=== PATIENT | female | born 2000 | race Caucasian/White ===

== ENCOUNTER 2018-09-05 06:00 | Inpatient (IN) ==
[2018-09-05] MEDS ORDERED: Famotidine 20 MG/2 ML VIAL IVP PRN (06:24)
[2018-09-05] MEDS ORDERED: Naloxone 0.4 MG/ML INJ IVP PRN (06:24)
--- NOTE | 2018-09-05 07:15 | OB/GYN History & Physical ---
Date of Encounter: 09/05/18 Time of Encounter: 07:12 Assessment and Plan (1) First in adolescent 16 years of age or older in third trimester Current visit: Yes Status: Acute (2) 39 weeks gestation of Current visit: Yes Status: Acute (3) Gestational diabetes Current visit: Yes Status: Acute Qualifiers: Gestational diabetes mellitus control: diet-controlled Trimester: third trimester Qualified Code(s): O24.410 - Gestational diabetes mellitus in , diet controlled (4) Elective induction of labor planned Current visit: Yes Status: Acute Patient will be induced with a Ray catheter and Cytotec plan is to anticipate vaginal delivery History of Present Illness HPI: Ms. Rothman is a 18 year old female 1 para 0 at 39-3/7 weeks who presented to labor and delivery for induction of labor secondary to term and being a gestational diabetic. Patient has been relatively noncompliant not bringing her sugar logs with her at her appointments. She stated that they were all been normal but when questioned what they are some have been high. She did bring in one time and they were normal. Patient did see maternal medicine recently due to missing 2 previous appointments the estimated weight was 3680 g which was greater than the 90th percentile with an WILLIAM of 20. They recommended delivering her in the 39 week range. Patient does not have the most favorable cervix but with her history had recommended proceeding on. Patient's NSTs have all been reactive. Patient denies having any regular contractions denies leaking of fluid still having good movement. Patient is GBS negative, O+, rubella positive, Varicella positive Past Med Surg Social Fam HX - Past Medical History Source: patient, old records reviewed Medical history: other Additional medical history: Gestational diabetes diet controlled Psychiatric history: anxiety - Past Surgical History Surgical History: no surgical history - Social History Smoking Status: Current every day smoker Packs per day: 0.5 Smokeless Tobacco Status: No Alcohol use: none Drug use: none Occupational status: unemployed Current living situation: Home - Independent Activity Level: Independent ambulation Recent Out of Country Travel Within the Last 8 Weeks: No Exposure or Possible Exposure to Illness During Travel: No - Family History Mother Living Status: Still Living Hx Family Cardiac Disorders: No Hx Family Respiratory Disorders: No Hx Family Cancer: No Hx Family GI Disorders: No Hx Family Genitourinary Disorders: No Hx Family Endocrine Disorder: Yes (DM) Hx Family Musculoskeletal Disorders: No Hx Family Neuromuscular Disorders: No Hx Family Neurologic Disorders: No Hx Family HEENT Disorders: No Hx Family Autoimmune Disorders: No Hx Family Reproductive Disorders: No Hx Family Psychosocial Disorders: No Hx Family Medical Disorders: No - Additional Family History Additional family history: Family history noncontributory Obstetrical History - Pregnancies : 1 Para: 0 Livin Medications and Allergies Vit #108/Iron/FA [ One Tablet] 1 mg PO DAILY 09/05/18 [History] Allergy/AdvReac Type Severity Reaction Status Date / Time No Known Allergies Allergy Verified 09/05/18 06:42 Review of System OB All systems PM: reviewed and no additional remarkable complaints except as stated Exam - Constitutional Constitutional: well developed, well nourished, no acute distress, morbidly obese - HEENT HEENT: EOMI, PERRL, Mucus Membranes Moist - Neck Neck exam: full ROM - Lungs Respiratory exam: CTAB - Cardiovascular Cardiovascular exam: RRR - Abdomen Abdomen: Present: bowel sounds normal, gravid ( heart tones 140s reactive occasional contractions seen) - Vagina Vagina: Present: normal moisture - Cervix Dilation: 1 Effacement: 50 Station: -3 (Ray catheter placed then 25 g Cytotec placed vaginally.) Results All other labs normal. - VTE Reasons for not Prescribing Prophylaxis: Treatment not Indicated - Low risk for VTE
[2018-09-05] MEDS ORDERED: Ringers Solution, Lactated 1,000 ML ONE (07:18)
[2018-09-05] MEDS ORDERED: Ringers Solution, Lactated 1,000 ML IVC SCH (07:30)
[2018-09-05] MEDS ORDERED: miSOPROStol 25 MCG TABLET VG PRN (07:39)
[2018-09-05 08:20] LABS: Basophils # 0.1 K/mcL (0.0-0.2); Basophils % 0.4 %; Eosinophils # 0.2 K/mcL (0.0-0.6); Eosinophils % 1.3 %; Hematocrit 39.3 % (35.3-44.9); Hemoglobin 13.1 g/dL (11.5-15.4); Lymphocytes # 2.5 K/mcL (0.6-4.6); Lymphocytes % 17.2 %; Mean Corpuscular HGB Conc 33.3 g/dL (31.6-35.5); Mean Corpuscular Hemoglobin 33.1 pg (28.0-33.3); Mean Corpuscular Volume 99.2 fL (83.0-100.0); Mean Platelet Volume 9.9 fL (9.4-12.4); Monocytes % 7.1 %; Neutrophils # 10.7 K/mcL (1.6-8.9); Platelet Count 269 K/mcL (140-400); Red Blood Count 3.96 M/mcL (3.82-4.97); Red Cell Distribution Width 12.5 % (11.5-14.5)
[2018-09-05] MEDS: *HR* Nalbuphine 10 MG/ML AMPUL IV PRN ×2 (10:07→12:41)
[2018-09-05] MEDS ORDERED: Ondansetron 4 MG/2 ML VIAL IVP PRN (11:19)
[2018-09-05] MEDS ORDERED: *HR* FentaNYL (PF) 100 MCG/2 ML VIAL EP ONE (15:29)
[2018-09-05] MEDS ORDERED: Bupivacaine-MPF 0.25% 10 ML VIAL EP ONE (15:29)
[2018-09-05] MEDS ORDERED: Epidural Premix (fent/bupiv) 110 ML EP SCH (15:30)
[2018-09-05] MEDS ORDERED: Lidocaine -MPF 2% 5 ML VIAL ONE (16:17)
[2018-09-05] MEDS ORDERED: Bupivacaine-MPF 0.25% 10 ML VIAL ONE (16:17)
[2018-09-05] MEDS ORDERED: *HR* FentaNYL (PF) 100 MCG/2 ML VIAL ONE (16:17)
[2018-09-05] MEDS ORDERED: Lidocaine/EPI 1:200k 1% PF 10 ML VIAL ONE (16:19)
--- NOTE | 2018-09-05 17:47 | Anesthesia Evaluation PreOp ---
Date of Encounter: 09/05/18 Time of Encounter: 15:36 - Past History Planned Operation: labor epidural Cardiac History: Denies any Significant Hx Pulmonary History: Smoker (smokes about 5 cigarettes a day, denies asthma or lung disease.) POWER SHOVEL OPERATOR HELPER History: Denies Any Significant HX Other Medical History: Other (gestational diabetes, diet controlled. BMI 44.) Anesthesia History: No Prior Anesthetic Complications (never had GA. No FHAP.) : Yes Alcohol Use: none Drug use: none Medications and Allergies Vit #108/Iron/FA [ One Tablet] 1 mg PO DAILY 09/05/18 [History] Allergy/AdvReac Type Severity Reaction Status Date / Time No Known Allergies Allergy Verified 09/05/18 06:42 - Meds/Allergy Pre-op Review Medications Reviewed: Yes Allergies Reviewed: Yes Beta Blockers on Current Med List: No Anesthesia Results - Labs 09/05/18 08:04 09/05/18 08:04 Anesthesia Exam 122/62, 109, 16. FHTs 130s. Height: 5'7" Weight: 128kg NPO (# of Hours): >8 Pain Scale: 7 Pain Scale Used: Numeric (1 - 10) - HEENT Pupil (Motor): Pupils equal, EOMI Mallampati: II Teeth: Normal Oral Opening: Greater than 3 - POWER SHOVEL OPERATOR HELPER LOC: Oriented POWER SHOVEL OPERATOR HELPER Motor: Normal RUE, Normal LUE, Normal RLE, Normal LLE, Normal Face POWER SHOVEL OPERATOR HELPER Sensory: Normal: RUE, LUE, RLE, LLE, Face - Cardiac Rhythm: Regular - Pulmonary Breath Sounds: bilateral Clear Respiratory Effort: Symmetrical Anesthesia Assess/Plan ASA Score: 3 Level of consciousness: Cooperative, Oriented, Tranquil Anesthetic Plan: Epidural Monitoring Plan: Standard Monitors
--- NOTE | 2018-09-05 17:53 | Anesthesia Procedures ---
Addendum entered and electronically signed by America Medina CRNA 09/06/18 06:53: Infant Delivery Date: 09/06/18 Infant Delivery Time: 04:23 Original Note: Date of Encounter: 09/05/18 Time of Encounter: 16:24 Procedures: Anesthesia - Epidural/Spinal Patient ID/Chart reviewed: Yes Patient examined: Yes OB Eval: : 1 OB Eval: Hx Para: 0 OB Eval: Dilated at (cm): 3 OB Eval: Contractions: Non-stressed pattern Consent Obtained: Yes Supplemental Oxygen: None/Room Air Site Prep: Aseptic Technique, Sterile prep and drape, Povidone-Iodine 1% Patient position: upright Local Anesthetic: Lidocaine 1% Amount of Local Anesthetic used: 5 Touhy Needle Gauge: 18 Touhy Needle Depth (cm): 8 Catheter Depth at Skin (cm): 18 Test Dose (1.5% Lido + Epi): Volume given (mls): 3 Test Dose Result: Negative Loading Dose: 0.25% Marcaine (mls): 8 Loading Dose: Fentanyl (mcg): 100 Loading Dose Administered: Thru Catheter Infusion Med: 0.125% Bupivacaine w/ 2 mcg/ml Fentanyl Infusion Rate (mls/hr): [address]: Tegaderm, Tape Interspace Used: L3-L4 Loss of Resistance (CRESCENCIO): Yes Blood: No CSF: No Paresthesia: No Vitals + FHT's: Vital Signs Time 1624 1642 1645 1650 1655 BP 124/67 115/70 115/49 114/57 113/58 Pulse 90 83 62 66 64 FHTs 130 130 130 130 130
--- NOTE | 2018-09-05 18:05 | OB Labor Progress Note ---
Date of Encounter: 09/05/18 Time of Encounter: 18:02 Labor Progress Note - Subjective Subjective: Patient comfortable after epidural and Ray catheter was out - Cervix Cervix: 3/80/-1 AROM clear fluid - Heart Tones Heart Tones: scalp monitor placed feel heart tones 140s reactive - Braymer Braymer: IUPC placed contractions irregular every 3-4 minutes - Plan Plan: We will augment with Pitocin plan is to anticipate vaginal delivery
[2018-09-05] MEDS ORDERED: Oxytocin 20 units/ LR 1000 mL 20 UNIT/1,000 ML BAG IVC SCH (18:30)
[2018-09-06] MEDS ORDERED: Metoclopramide 10 MG/2 ML VIAL IVP PRN ×2 (03:15→09:25)
[2018-09-06] MEDS ORDERED: Lidocaine/EPI 1:200k 2% PF 20 ML VIAL ONE (03:26)
[2018-09-06] MEDS ORDERED: *HR* Oxytocin 10 UNIT/ML VIAL IM ONE (03:26)
[2018-09-06] MEDS ORDERED: Water for inj. (sterile) 20 ML IV ONE (03:31)
--- NOTE | 2018-09-06 03:34 | OB/GYN Procedure Note ---
Section - Date of procedure: 09/06/18 Preop diagnosis: other (Intrauterine at 39-3/7 weeks, arrest of descent, cephalopelvic disproportion, gestational diabetes, large for gestational age .) Post-op diagnosis: same (with POP) Procedure: primary low transverse Surgeon: Tyler De Jesus Blood Loss: 700 Was there an assistant press operator present: Yes Customer Loyalty Representative: Aurora Whitfield ([email or web address]) Egg Factory Worker: America Medina Anesthesia Type: Epidural section complications: none Disposition: PACU Specimens: Placenta - Infant (s) Infant A Delivery Date: 09/06/18 Delivery Time: 04:23 Presentation: vertex Position: OP Route of delivery: other ( section) Gender: Female Pounds: 8 Ounces: 13 Gram Weight: 3.985 kg at 1 minute: 8 at 5 minutes: 9 Shoulder Dystocia: not encountered Specimens collected: cord blood Placenta: spontaneous Cord: 3 umbilical vessels - Narrative Narrative: Patient is a 18-year-old 1 para 0 at 39-3/7 weeks who is brought in for induction labor secondary to term and being a gestational diabetic. Patient was noncompliant with her diabetic logs and would not bring them to the office first to evaluate she canceled 2 appointments with maternal- medicine for diabetic management and she will need to get into seems to be maternal- medicine doctors they did not ultrasound baby weighed posterior 3800 g and made recommended getting her delivered and the 38-39 week range. Patient already been scheduled for today. Patient was brought and Ray cathete r was placed along with Cytotec and eventually stayed in for approximately 5 hours before was finally out the patient has a very tight 3 cm at this point she did receive an epidural she was artificially ruptured and internalized patient really did not progress past 3-4 cm patient was having decelerations Pitocin had to be turned off periodically to allow the baby to recover before can be restarted finally had the patient in a good contraction pattern and she continued to make no cervical change after 4-5 hours At this time that labor would not progress this way and section was called. Procedure: Patient taken operating room with epidural anesthesia was found adequate. She states the dorsal supine position with leftward tilt prepped and draped in usual fashion. Timeout was obtained. A Pfannenstiel incision was made with a scalpel carried out to the underlying tissue until the fascia was identified. Fascia was nicked in midline and extended laterally with Fagan scissors. The superior and inferior edge of the fascia were grasped tented up and dissected off the rectus muscles. Rectus muscles were in midline parietal peritoneum was identified tented up and entered sharply. This was extended superiorly and inferiorly with Metzenbaum scissors. Bladder blade was inserted the vesicouterine peritoneum was identified tented up and entered sharply. This was then extended laterally and the bladder flap was created digitally. The lower uterine segment was then incised with a scalpel and extended laterally with digital manipulation. Membranes ruptured infant's head was then delivered followed by the body, was in an OP presentation, the cord was clamped and cut infant was handed off to waiting pediatric team. Cord blood was collected placenta was then delivered spontaneously and the uterus was exteriorized and cleaned of all clots and debris. The low uterine segment was then closed using an 0 Vicryl in a running locking stitch by a two layer closure. Good hemostasis was noted uterus was returned to the abdomen and gutters were cleansed of all clots and debris and copiously irrigated. No active bleeding was noted. The fascia was then closed using a #1 statafix then the skin was closed using a 4 Vicryl in a subcuticular manner. All needles laps and sponge counts were correct 3 she did receive preoperative antibiotics
--- NOTE | 2018-09-06 03:34 | OB Labor Progress Note ---
Date of Encounter: 09/06/18 Time of Encounter: 03:32 Labor Progress Note - Subjective Subjective: patient not made any cervical change even with adequate contractions she remains 3-4cm discussed if she didnt make any change we would need to discuss a section, she has been having occ decelerations but those did resolve, - Cervix Cervix: 3-4 - Heart Tones Heart Tones: heart tones 140s - [place]: Contractions every 2 minutes for adequate Pitocin is now off. - Plan Plan: Prep the patient for a primary low transverse section
[2018-09-06] MEDS ORDERED: *HR* OxyCODONE Immed Rel 5 MG TABLET PO PRN (03:47)
[2018-09-06] MEDS ORDERED: Acetaminophen IV 1,000 MG/100 ML INFUS..BTL IVPB ONE (03:47)
[2018-09-06] MEDS ORDERED: *HR* Promethazine 25 MG/ML VIAL IVP PRN (03:47)
[2018-09-06] MEDS ORDERED: Ondansetron 4 MG/2 ML VIAL IVP ONE (03:47)
[2018-09-06] MEDS ORDERED: *HR* Morphine 2 MG/ML SYRINGE IVP PRN (03:47)
[2018-09-06] MEDS ORDERED: *HR* HYDROmorphone (PF) 1 MG/ML SYRINGE IVP PRN (03:47)
[2018-09-06] MEDS ORDERED: Water for inj. (sterile) 10 ML IV ONE (03:59)
[2018-09-06] MEDS ORDERED: Ondansetron 4 MG/2 ML VIAL ONE (03:59)
[2018-09-06] MEDS ORDERED: EPHEDrine 50 MG/ML VIAL ONE (03:59)
[2018-09-06] MEDS ORDERED: Ringers Solution, Lactated 1,000 ML ONE (04:03)
[2018-09-06] MEDS ORDERED: *HR* Propofol 200 MG/20 ML VIAL IVP ONE (04:05)
[2018-09-06] MEDS ORDERED: *HR* Succinylcholine 200 MG/10 ML VIAL IVP ONE (04:06)
[2018-09-06] MEDS ORDERED: *HR* Morphine Sulfate/PF 10 MG/10 ML AMPUL ONE (04:34)
--- NOTE | 2018-09-06 06:52 | Anesthesia Evaluation Post Op ---
Date of Encounter: 09/06/18 Time of Encounter: 06:30 - Vital Signs Vital Signs: VSS - Lungs Lungs: Clear Ascult./Percussion - Airway Airway: Non-obstructed - Cardiovascular Regular Rate - Mental Status Mental Status: Alert & Oriented, Answers Appropriately - Pain Pain Scale: 3 Pain Scale used: Numeric (1 - 10) - Nausea Vomiting Nausea Vomiting: Not Present - Hydration Hydration: NPO, Ray catheter - Discharge PostOp Status: Transfer Patient to floor
[2018-09-06] MEDS ORDERED: IRON PO SCH (09:25)
[2018-09-06] MEDS ORDERED: Oxytocin 20 units/ LR 1000 mL 20 UNIT/1,000 ML BAG IVC SCH ×2 (09:25)
[2018-09-06] MEDS ORDERED: PRENATAL VIT PO SCH (09:25)
[2018-09-06] MEDS ORDERED: Ondansetron 4 MG/2 ML VIAL IVP PRN (09:25)
[2018-09-06] MEDS ORDERED: Sennosides 8.6 MG TABLET PO PRN (09:25)
[2018-09-06] MEDS ORDERED: [UNRECOGNIZED DRUG - OTHER] PO SCH (09:25)
[2018-09-06] MEDS ORDERED: Simethicone 80 MG TAB.CHEW PO PRN (09:25)
[2018-09-06] MEDS: *HR* OxyCODONE/APAP 5/325 TABLET PO PRN (21:06)
[2018-09-07] MEDS: *HR* OxyCODONE/APAP 5/325 TABLET PO PRN ×3 (04:41→20:21)
[2018-09-07 05:56] LABS: Basophils % 0.2 %; Eosinophils # 0.1 K/mcL (0.0-0.6); Eosinophils % 0.4 %; Hematocrit 26.4 % (35.3-44.9); Immature Granulocytes % 1.2 % (0-4); Lymphocytes # 1.7 K/mcL (0.6-4.6); Lymphocytes % 8.6 %; Mean Corpuscular HGB Conc 33.7 g/dL (31.6-35.5); Mean Corpuscular Volume 97.8 fL (83.0-100.0); Mean Platelet Volume 9.8 fL (9.4-12.4); Monocytes # 1.5 K/mcL (0.0-1.3); Monocytes % 7.3 %; Neutrophils # 16.4 K/mcL (1.6-8.9); Platelet Count 208 K/mcL (140-400); Red Cell Distribution Width 12.6 % (11.5-14.5); Segmented Neutrophils % 82.3 %
[2018-09-07 05:57] LABS: Hemoglobin 8.9 g/dL (11.5-15.4)
[2018-09-07] MEDS: Ibuprofen 600 MG TABLET PO PRN ×2 (09:46→20:21)
[2018-09-07] MEDS: Prenatal Vit/FA 1 EACH TABLET PO SCH (09:47)
--- NOTE | 2018-09-07 10:18 | OB/GYN Progress Note ---
Date of Encounter: 09/07/18 Time of Encounter: 10:16 - Assessment and Plan (1) Status post primary low transverse section Current Visit: Yes Status: Acute Status post primary LT day 1 Meeting day 1 milestones Pain uncontrolled, has been give PO pain medication Voiding and passing flatus Lochia light support as needed Anticipate discharge tomorrow, discharge medications will be ordered today as outpatient pharmacy closed tomorrow due to holiday (2) 39 weeks gestation of Current Visit: Yes Status: Acute Presented for IOL at 39 weeks 3 days S/P for arrest of descent and cephalopelvic disproportion Now Healthy female , 8 lb 13 oz with 8/9 (3) anemia Current Visit: Yes Status: Acute Hgb 8.9, Hct 26.4 EBL from 700 ml Continue ferrous sulfate (4) Gestational diabetes Current Visit: Yes Status: Acute Diet controlled Glucose WNL Will need GTT at 4-12 weeks Qualifiers: Gestational diabetes mellitus control: diet-controlled Trimester: third trimester Qualified Code(s): O24.410 - Gestational diabetes mellitus in , diet controlled Subjective - Subjective Principal diagnosis: S/P primary at 39 weeks 3 days gestation of Interval history: Patient is a 18 y/o female who presented at 39 weeks and 3 days for induction of labor due to diet controlled GDM Had arrest of descent and cephalopelvic disproportion leading to primary c- section S/P primary LT day 1 Pain not controlled, she had been sleeping during previous nursing assessments and had not taken PO pain medication this morning Ambulating without difficulty Decreased appetite but no nausea or vomiting Voiding and passing flatus Lochia is light Mood is appropriate female doing well Denies fever, chills, chest pain, shortness of breath or calf pain Patient reports: appetite normal, voiding normally (Patient rates pain as 10/10, was asleep during previous nursing assessment and hadn't taken pain medication), pain poorly controlled, ambulating normally [place]: doing well, nursing well Objective - Vital Signs Latest vital signs: Vital Signs Temp Pulse Resp BP Pulse Ox 09/07/18 07:30 97.5 F L 69 16 105/58 09/07/18 04:44 98.4 F 104 16 132/90 97 09/07/18 00:59 98.4 F 104 16 132/90 97 09/06/18 21:45 98.3 F 99 18 105/56 98 09/06/18 12:00 98.0 F 88 14 97/61 96 09/06/18 10:45 98.5 F 93 16 104/56 98 Intake and Output 09/06/18 09/07/18 09/07/18 23:59 07:59 15:59 Intake Total 900 / 900 Output Total 600 / 600 600 / 600 Balance -600 / -600 300 / 300 Intake: Oral 900 / 900 Output: Urine 600 / 600 600 / 600 Other: Meal Dinner Percent of Meal Consumed 70% - Exam Lungs: bilateral: normal Chest: Normal S1, Normal S2 Extremities: Present: normal, edema (1+ pedal edema) Abdomen: Present: normal appearance, soft Incision: Present: normal, dry, intact Uterus: Present: normal, firm Fundal Height: 1 (1 cm below umbilicus) - Labs Labs: Laboratory Results - last 24 hr 09/07/18 05:36 WBC 19.9 H RBC 2.70 L Hgb 8.9 L D Hct 26.4 L MCV 97.8 MCH 33.0 MCHC 33.7 RDW 12.6 Plt Count 208 MPV 9.8 Immature Gran % 1.2 Seg Neutrophils % 82.3 Lymphocytes % 8.6 Monocytes % 7.3 Eosinophils % 0.4 Basophils % 0.2 Neutrophils # 16.4 H Lymphocytes # 1.7 Monocytes # 1.5 H Eosinophils # 0.1 Basophils # 0.0
[2018-09-08 08:31] VITALS: BP 115/79
--- NOTE | 2018-09-08 08:45 | Discharge Summary ---
Date of Encounter: 09/08/18 Time of Encounter: 08:40 - Discharge Diagnosis (1) First in adolescent 16 years of age or older in third trimester Priority: Secondary Status: Acute (2) 39 weeks gestation of Priority: Secondary Status: Acute (3) Gestational diabetes Priority: Secondary Status: Acute Qualifiers: Gestational diabetes mellitus control: diet-controlled Trimester: third trimester Qualified Code(s): O24.410 - Gestational diabetes mellitus in , diet controlled (4) Elective induction of labor planned Priority: Secondary Status: Acute (5) anemia Priority: Primary Status: Acute (6) Status post primary low transverse section Priority: Primary Status: Acute - Discharge Medications Prescriptions: Ibuprofen [Motrin] 600 mg PO Q6HR PRN #60 tab PRN Reason: Pain Breast Pump [BREAST PUMP] 1 each .ROUTE AD #1 each Docusate Sodium [Colace] 100 mg PO BID #30 capsule Ferrous Sulfate 325 mg PO DAILY #90 tablet Oxycodone HCl/Acetaminophen [Percocet 5-325 mg Tablet] 1 each PO Q6H 7 Days #28 tablet Home Medications: Vit #108/Iron/FA [ One Tablet] 1 mg PO DAILY 09/05/18 [History] Breast Pump [BREAST PUMP] 1 each .ROUTE AD #1 each 09/07/18 [Rx] Docusate Sodium [Colace] 100 mg PO BID #30 capsule 09/07/18 [Rx] Ferrous Sulfate 325 mg PO DAILY #90 tablet 09/07/18 [Rx] Ibuprofen [Motrin] 600 mg PO Q6HR PRN #60 tab 09/07/18 [Rx] Oxycodone HCl/Acetaminophen [Percocet 5-325 mg Tablet] 1 each PO Q6H 7 Days #28 tablet 09/07/18 [Rx] Allergies/Adverse Reactions: Allergy/AdvReac Type Severity Reaction Status Date / Time No Known Allergies Allergy Verified 09/05/18 06:42 Data Procedures and tests throughout hospitalization: Laboratory Tests 09/05/18 09/05/18 09/05/18 07:00 08:04 08:04 WBC 14.6 H RBC 3.96 Hgb 13.1 Hct 39.3 MCV 99.2 MCH 33.1 MCHC 33.3 RDW 12.5 Plt Count 269 MPV 9.9 Immature Gran % 1.0 Seg Neutrophils % 73.0 Lymphocytes % 17.2 Monocytes % 7.1 Eosinophils % 1.3 Basophils % 0.4 Neutrophils # 10.7 H Lymphocytes # 2.5 Monocytes # 1.0 Eosinophils # 0.2 Basophils # 0.1 Glucose 95 POC Glucose Specimen Rejected Labelling 09/05/18 09/07/18 23:17 05:36 WBC 19.9 H RBC 2.70 L Hgb 8.9 L D Hct 26.4 L MCV 97.8 MCH 33.0 MCHC 33.7 RDW 12.6 Plt Count 208 MPV 9.8 Immature Gran % 1.2 Seg Neutrophils % 82.3 Lymphocytes % 8.6 Monocytes % 7.3 Eosinophils % 0.4 Basophils % 0.2 Neutrophils # 16.4 H Lymphocytes # 1.7 Monocytes # 1.5 H Eosinophils # 0.1 Basophils # 0.0 Glucose POC Glucose 82 Specimen Rejected Date of admission: 09/05/18 06:20 Primary care physician: Pete Collado MD Discharging clinician: Tyler Prather Anticipated date of discharge: 09/08/18 - Patient Status Disposition: Home, Self-Care Condition: Good Functional capacity at discharge: independent ambulation Overall status at discharge: patient is progressing back to baseline - Discharge Instructions Follow Up With: Pete Collado MD [Primary Care Provider] - Tyler Prather DO [Partnered Physician] - Hospital Course Procedures: Primary low transverse section Reason for admission: induction of labor Delivery: section Episiotomy: none Laceration: none Other procedures: none complications: none Discharge diagnosis: IUP at term delivered Hospital course: She is a 18-year-old 1 para 0 had presented for induction of labor secondary to term station diabetes and large gestational age infant. Patient was not compliant with her diabetic management refused to bring in her sugar logs in the could not determine whether or not she was being compliant NSTs remained normal in the office she did see maternal medicine eventually. Recommended delivery in the 38-39 week range we did bring the patient and she did receive before the catheter and Cytotec progressed approximately 3-4 cm but did not progress past this point after approximately 8 hours of no cervical change she started having some decelerations side this time that section would be performed due to failure to progress patient did undergo a primary low transverse section without any significant complications baby was noted be in ROP presentation and was relatively large. Patient has done well postoperative course was unremarkable but was amounts and she has been angulated patient measured to be discharged home she will be discharged home with prescription for iron sulfate due to anemia and Percocet 5 mg #28 one every 6hrs as needed for pain for 7 days she will follow up in my office in 2 weeks patient's condition at time of discharge was stable Time Attestation: Total time spent providing and/or coordinating discharge services: - VTE Reasons for not Prescribing Prophylaxis: Treatment not Indicated - Low risk for VTE Documentation of Mechanical Device: Intermittent pneumatic compression device Exam - Constitutional Vitals: Temp Pulse Resp BP Pulse Ox 97.6 F 97 14 115/79 99 09/08/18 08:30 09/08/18 08:30 09/08/18 08:30 09/08/18 08:30 09/08/18 08:30 General appearance IM: mild distress, A&O X 3 - Respiratory Respiratory exam: Present: CTAB - Cardiovascular Cardiovascular exam IM: Present: RRR - GI/Abdominal GI/Abdominal exam IM: normal bowel sounds Incision: normal, dry, intact - Uterine Tone: Firm Uterus Position: At Umbilicus
[2018-09-08] MEDS: Prenatal Vit/FA 1 EACH TABLET PO SCH (09:02)
== END 2018-09-08 09:24 | disposition home or self-care (01) | DRG 540 ==
LOC: 1NENULAB 06:20 → 1NENUOBS 09-06 07:49
PROVIDERS: ADMIT Obstetrics & Gynecology; ATTEND Obstetrics & Gynecology